=== PATIENT | female | born 1975 | race American Indian/Alaskan Native ===

== ENCOUNTER 2016-05-01 09:54 | Emergency (ER) | payer OTHER ==
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
[2016-05-01] MEDS ORDERED: NORCO PO ONE (11:01)
[2016-05-01] MEDS ORDERED: APRESOLINE PO ONE (11:01)
[2016-05-01] MEDS ORDERED: NORCO 7.5/325 ONE (11:08)
[2016-05-01] MEDS ORDERED: NORCO 7.5/325 PO ONE (11:15)
[2016-05-01 11:36] LABS: Basophils % (Auto) 1.2 % (0.0-1.8); Eosinophils % (Auto) 4.1 % (0.0-4.3); Hematocrit 40.5 % (30.3-42.9); Hemoglobin 13.3 gm/dl (10.1-14.3); Mean Corpuscular HGB Conc 33 % (30-34); Mean Corpuscular Hemoglobin 30 pg (28-32); Mean Corpuscular Volume 91 fl (79-97); Red Blood Count 4.46 M/mm3 (3.65-5.03); Red Cell Distribution Width 13.5 % (13.2-15.2); White Blood Count 5.4 K/mm3 (4.5-11.0)
[2016-05-01 11:40] LABS: Platelet Count 178 K/mm3 (140-440)
[2016-05-01 11:51] LABS: Anion Gap 17 mmol/L; BUN/Creatinine Ratio 11.11; Blood Urea Nitrogen 10 mg/dL (7-17); Calcium 8.8 mg/dL (8.4-10.2); Carbon Dioxide 23 mmol/L (22-30); Chloride 102.9 mmol/L (98-107); Glucose 90 mg/dL (65-100); Potassium 3.9 mmol/L (3.6-5.0); Sodium 139 mmol/L (137-145)
--- NOTE | 2016-05-01 12:00 | XRay Report ---
Chest: Compared to a chest /. History: Hypertension. Findings: Borderline cardiomegaly. Trachea is midline. No consolidation, pneumothorax or pleural effusion. Impression: No acute cardiopulmonary findings.
[2016-05-01 12:33] VITALS: BP 164/89
== END 2016-05-01 12:51 | disposition home or self-care (01) ==
LOC: ED 09:54
DX: R07.89 Other chest pain (principal); I10 Essential (primary) hypertension; F12.10 Cannabis abuse, uncomplicated
CPT/HCPCS: 36415; 71010; 80048; 84484; 85025; 93005; 93010; 99285

== ENCOUNTER 2017-06-15 09:43 | Emergency (ER) | payer OTHER ==
[2017-06-15] MEDS ORDERED: BABY ASPIRIN PO ONE (10:43)
[2017-06-15] MEDS ORDERED: BABY ASPIRIN ONE ×2 (10:45)
[2017-06-15 11:08] LABS: Basophils # (Auto) 0.1 K/mm3 (0.0-0.1); Eosinophils # (Auto) 0.1 K/mm3 (0.0-0.4); Eosinophils % (Auto) 1.9 % (0.0-4.3); Monocytes # (Auto) 0.6 K/mm3 (0.0-0.8); Monocytes % (Auto) 8.3 % (0.0-7.3)
[2017-06-15 11:16] LABS: Basophils % (Auto) 1.3 % (0.0-1.8); Hematocrit 41.8 % (30.3-42.9); Hemoglobin 13.6 gm/dl (10.1-14.3); Lymphocytes # (Auto) 1.8 K/mm3 (1.2-5.4); Lymphocytes % (Auto) 25.3 % (13.4-35.0); Mean Corpuscular HGB Conc 32 % (30-34); Mean Corpuscular Hemoglobin 30 pg (28-32); Mean Corpuscular Volume 91 fl (79-97); Red Blood Count 4.59 M/mm3 (3.65-5.03); Red Cell Distribution Width 13.7 % (13.2-15.2)
[2017-06-15 11:17] LABS: Alanine Aminotransferase 9 units/L (7-56); BUN/Creatinine Ratio 11; Blood Urea Nitrogen 10 mg/dL (7-17); Calcium 8.9 mg/dL (8.4-10.2); Hemolysis Index 3
[2017-06-15 11:31] LABS: Bacteria,Urine 2+ /HPF (Negative); Bilirubin,Urine NEG (Negative); Blood,Urine NEG (Negative); Color,Urine Yellow (Yellow); Mucus,Urine FEW /HPF; Protein,Urine <15 mg/dL mg/dL (Negative); Urobilinogen,Urine < 2.0 mg/dL (<2.0); WBC,Urine < 1.0 /HPF (0.0-6.0)
--- NOTE | 2017-06-15 11:51 | XRay Report ---
AP CHEST: HISTORY: chest pain AP view of the chest demonstrates a normal mediastinal and cardiac contour with clear lungs and normal bony and soft tissue structures. IMPRESSION: Unremarkable AP chest.
[2017-06-15 12:02] LABS: Platelet Count 209 K/mm3 (140-440)
[2017-06-15] MEDS ORDERED: NORMODYNE IV ONE (12:03)
[2017-06-15 12:41] LABS: INR 0.97 (0.87-1.13); Partial Thromboplastin Time 30.3 Sec. (24.2-36.6)
[2017-06-15 13:05] VITALS: BP 186/105
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
== END 2017-06-15 13:32 | disposition left against medical advice (07) ==
LOC: EEVIPCON 09:43 → ED 09:43
DX: F12.10 Cannabis abuse, uncomplicated (principal)
CPT/HCPCS: 36415; 71045; 80053; 81001; 83880; 84484; 85025; 85379; 85610; 85730; 93005; 93010; 96374

== ENCOUNTER 2017-08-17 08:59 | Emergency (ER) | payer OTHER ==
[2017-08-17 09:08] VITALS: BP 177/110
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
== END 2017-08-17 09:55 | disposition home or self-care (01) ==
LOC: ED 08:59
DX: L30.9 Dermatitis, unspecified (principal); I10 Essential (primary) hypertension
CPT/HCPCS: 99282

== ENCOUNTER 2018-03-26 09:34 | Emergency (ER) | payer OTHER ==
[2018-03-26 09:45] VITALS: BP 119/73
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
== END 2018-03-26 11:30 | disposition home or self-care (01) ==
LOC: ED 09:34
DX: R07.89 Other chest pain (principal); I10 Essential (primary) hypertension
CPT/HCPCS: 93005; 93010; 99282

== ENCOUNTER 2019-02-02 08:03 | Emergency (ER) | payer OTHER ==
[2019-02-02 08:11] VITALS: BP 184/100
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
[2019-02-02 08:48] LABS: Basophils # (Auto) 0.1 K/mm3 (0.0-0.1); Basophils % (Auto) 1.2 % (0.0-1.8); Eosinophils # (Auto) 0.2 K/mm3 (0.0-0.4); Hematocrit 38.4 % (30.3-42.9); Hemoglobin 12.8 gm/dl (10.1-14.3); Lymphocytes % (Auto) 26.4 % (13.4-35.0); Mean Corpuscular HGB Conc 33 % (30-34); Mean Corpuscular Volume 91 fl (79-97); Monocytes # (Auto) 0.5 K/mm3 (0.0-0.8); Monocytes % (Auto) 6.6 % (0.0-7.3); Platelet Count 228 K/mm3 (140-440); Red Cell Distribution Width 13.9 % (13.2-15.2)
[2019-02-02 09:10] LABS: BUN/Creatinine Ratio 9; Blood Urea Nitrogen 8 mg/dL (7-17); Calcium 8.7 mg/dL (8.4-10.2); Hemolysis Index 6
--- NOTE | 2019-02-02 10:52 | XRay Report ---
CHEST 2 VIEWS INDICATION / CLINICAL INFORMATION: ChestPain,cough, sob. COMPARISON: Chest x-ray 06/15/2017 FINDINGS: SUPPORT DEVICES: None. HEART / MEDIASTINUM: No significant abnormality. LUNGS / PLEURA: No significant pulmonary or pleural abnormality. No pneumothorax. ADDITIONAL FINDINGS: No significant additional findings. IMPRESSION: 1. No acute findings. Signer Name: Wu Mendes MD Signed: 02/02/2019 10:48 AM Workstation Name: [id number]
== END 2019-02-02 10:50 | disposition left against medical advice (07) ==
LOC: ED 08:03
DX: R07.89 Other chest pain (principal); I10 Essential (primary) hypertension; Z98.890 Other specified postprocedural states; Z79.899 Other long term (current) drug therapy
CPT/HCPCS: 36415; 71046; 80048; 84484; 85025; 93005; 93010

== ENCOUNTER 2020-10-04 08:57 | Emergency (ER) | payer OTHER ==
[2020-10-04 09:19] VITALS: BP 168/101
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
== END 2020-10-04 11:10 | disposition home or self-care (01) ==
LOC: ED 08:57
DX: M79.602 Pain in left arm (principal); L84 Corns and callosities; R03.0 Elevated blood-pressure reading, without diagnosis of hypertension; I10 Essential (primary) hypertension; F12.90 Cannabis use, unspecified, uncomplicated; Z79.899 Other long term (current) drug therapy
CPT/HCPCS: 99282

== ENCOUNTER 2021-04-12 08:42 | Emergency (ER) | payer OTHER ==
[2021-04-12 08:45] VITALS: BP 163/96
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
== END 2021-04-12 09:34 | disposition home or self-care (01) ==
LOC: ED 08:42
DX: H69.90 Unspecified Eustachian tube disorder, unspecified ear (principal); H92.02 Otalgia, left ear; I10 Essential (primary) hypertension; F12.90 Cannabis use, unspecified, uncomplicated
CPT/HCPCS: 99282